=== PATIENT | male | born 1950 | race Caucasian/White ===

== ENCOUNTER 2022-12-17 21:47 | Emergency (ER) | payer MEDICARE, SELFPAY ==
--- NOTE | ~2022-12-17 | CT_ITS ---
CT Abdomen and Pelvis with contrast. History: Abdominal pain. Spiral CT of the abdomen and pelvis was performed after the administration of intravenous contrast. 1 00 cc of Omnipaque 350 was administered intravenously without complication. Dose reduction technique was used on this scan by utilizing automated exposure control and iterative reconstruction technique. The dose-length product (DLP) was 773.17 mGy-cm. Findings: Scans through the lung bases demonstrate mild atelectatic change. Small hiatal hernia noted . The liver, spleen, pancreas, gallbladder, adrenals and right kidney are within normal limits. Patient is status post left nephrectomy. No evidence of aortic aneurysm. No lymphadenopathy is seen. There is mild haziness in the left mesentery with suspected mild wall thickening of adjacent small sharlene wel loops. No bowel obstruction. No abscess or free air. Images through the pelvis were performed. Urinary bladder unremarkable. Prostate gland is minimally e nlarged. Trace pelvic ascites is seen. Impression: Focal infectious/inflammatory small bowel enteritis, as noted above. Trace free fluid. Small hiatal hernia. Prior left nephrectomy. Reviewed, dictated and finalized at [facility]. R BENDER Impression: Focal infectious/inflammatory small bowel enteritis, as noted above. Trace free fluid. Small hiatal hernia. Prior left nephrectomy.
[2022-12-17 21:50] VITALS: BP 151/72; PULSE 78; RESP 20; TEMP 36.6; O2SAT 98
[2022-12-17 22:03] LABS: Basophils Absolute Auto 0.1 K/mm3 (0.0-0.1); Basophils Percent Auto 0.7 % (0.2-1.2); Eosinophils Absolute Auto 0.2 K/mm3 (0-0.3); Eosinophils Percent Auto 1.8 % (0-4.4); Hematocrit 42.5 % (42.0-52.0); Hemoglobin 14.7 g/dL (14.0-18.0); Immature Granulocyte Absolute 0.04 K/mm3 (0.00-0.031); Immature Granulocyte Percent A 0.3 % (0-0.5); Lymphocytes Absolute Auto 2.43 K/mm3 (0.9-3.2); Lymphocytes Percent Auto 18.2 % (18.3-44.2); Mean Corpuscular HGB Conc 34.6 g/dl (32-36); Mean Corpuscular Volume 95.3 fl (80-100); Mean Platelet Volume 10.1 fl (7.4-10.4); Monocytes Absolute Auto 0.7 K/mm3 (0.1-0.6); Monocytes Percent Auto 4.9 % (2.6-8.5); Neutrophils Absolute Auto 9.9 K/mm3 (1.3-6.7); Neutrophils Percent Auto 74.1 % (45.5-73.1); Platelet Count Result 185 k/mm3 (150-375); Red Blood Count 4.46 M/mm3 (4.6-6.20); Red Cell Distribution Width 12.7 % (11.5-14.5); White Blood Count 13.4 K/mm3 (4.5-10.0)
[2022-12-17 22:14] LABS: Alanine Aminotransferase 21 U/L (6-50); Albumin Level 4.5 g/dL (3.5-5.1); Alkaline Phosphatase 79 U/L (38-126); Anion Gap 10 mmol/L (8-16); Aspartate Amino Transferase 32 U/L (17-59); Bilirubin,Total 0.6 mg/dL (0.2-1.3); Blood Urea Nitrogen 14 mg/dL (9-20); Calcium 9.6 mg/dL (8.4-10.2); Carbon Dioxide 25 mmol/L (22-30); Chloride 103 mmol/L (98-107); Estimated Glomerular Filt Rate 60; Glucose 133 mg/dL (65-110); Lipase 66 U/L (23-300); Sodium 138 mmol/L (137-145)
--- NOTE | 2022-12-18 00:42 | ED.GENADULT ---
HPI - General Adult General Chief complaint: Abdominal Pain Stated complaint: abdominal pain Time Seen by Provider: 12/17/22 23:21 History of Present Illness HPI narrative: Patient 72-year-old gentleman who presents to the emergency department with chief complaint of abdominal pain. Patient reports this evening started having pain in a band around the periumbilical region. The patient states the pain made him feel as though he had fullness in his abdomen that made him feel short of breath. Patient states he vomited a few times that did not improve his symptoms. The patient states upon arrival to the emergency department his symptoms have improved. Patient states that now essentially the discomfort has resolved. Related Data Allergies Allergy/AdvReac Type Severity Reaction Status Date / Time No Known Allergies Allergy Unknown Verified 12/17/22 21:54 Review of Systems Review of Systems: A 10 system review of systems was completed on the patient and is negative except for what is stated in the HPI. Nursing and ancillary documentation was reviewed. PMFSH Comments Patient reports prior history of nephrectomy Exam Narrative: GENERAL: Well-appearing, well-nourished, and in no acute distress. HEAD: Normocephalic, atraumatic. EYES: PERRLA and EOMI. ENT: Nares clear, no rhinorrhea or epistaxis. Mucous membranes moist. NECK: Supple. CHEST: Clear to auscultation. No respiratory distress. HEART: Regular rate and rhythm. No murmur heard. Normal peripheral pulses. ABDOMEN: Soft, tenderness to palpation of the left upper quadrant and left lower quadrant, nondistended, normal active bowel sounds. EXTREMITIES: Normal range of motion. No edema. SKIN: Warm, dry, no rash. NEURO: No focal deficits. Alert and oriented x3. PSYCH: Normal mood and affect. Course Vital Signs Vital signs: Vital Signs Temperature 36.6 C 12/17/22 21:50 Pulse Rate 78 12/17/22 21:50 Respiratory Rate 20 12/17/22 21:50 Blood Pressure 151/72 H 12/17/22 21:50 Pulse Oximetry 98 12/17/22 21:50 Oxygen Delivery Room Air 12/17/22 21:50 Temperature 36.6 C 12/17/22 21:50 Pulse Rate 78 12/17/22 21:50 Respiratory Rate 20 12/17/22 21:50 Blood Pressure 151/72 H 12/17/22 21:50 Pulse Oximetry 98 12/17/22 21:50 Oxygen Delivery Room Air 12/17/22 21:50 Medical Decision Making MDM Narrative Medical decision making narrative: Laboratory studies were obtained on the patient which showed a white blood cell count of 13.4 electrolytes showed no renal insufficiency normal liver enzymes normal lipase. Due to the patient being tender in the left upper quadrant and left lower quadrant a CT scan of the abdomen pelvis was ordered CT scan report was reviewed from the radiologist evidence of a mild hiatal hernia mildly inflamed small bowel loops concerning for enteritis/jejunitis. No evidence of bowel obstruction. Vital Signs Vital Signs: Vital Signs Temperature 36.6 C 12/17/22 21:50 Pulse Rate 78 12/17/22 21:50 Respiratory Rate 20 12/17/22 21:50 Blood Pressure 151/72 H 12/17/22 21:50 Pulse Oximetry 98 12/17/22 21:50 Oxygen Delivery Room Air 12/17/22 21:50 Temperature 36.6 C 12/17/22 21:50 Pulse Rate 78 12/17/22 21:50 Respiratory Rate 20 12/17/22 21:50 Blood Pressure 151/72 H 12/17/22 21:50 Pulse Oximetry 98 12/17/22 21:50 Oxygen Delivery Room Air 12/17/22 21:50 Lab Data 12/17/22 21:57 12/17/22 21:57 Labs: Lab Results 12/17/22 12/17/22 12/18/22 Range/Units 21:57 21:57 00:09 WBC 13.4 H (4.5-10.0) K/mm3 RBC 4.46 L (4.6-6.20) M/mm3 Hgb 14.7 (14.0-18.0) g/dL Hct 42.5 (42.0-52.0) % MCV 95.3 (80-100) fl MCH 33.0 (26-34) pg MCHC 34.6 (32-36) g/dl RDW 12.7 (11.5-14.5) % Plt Count 185 (150-375) k/mm3 MPV 10.1 (7.4-10.4) fl Immature Gran % (Auto) 0.3 (0-0.5) % Neut % (Auto) 74.1 H (45.5-73.1)
[2022-12-18 00:49] LABS: Appearance Urine Clear (Clear); Bacteria Urine Trace /hpf; Bilirubin Urine Negative (Negative); Blood Urine Trace-intact (Negative); Color Urine Yellow (Yellow); Glucose Urine UA Negative (Negative); Ketones Urine 2+ mg/dL (Negative); Leukocyte Esterase Ur Trace LEU/UL (Negative); Mucus Urine Rare /lpf; Nitrate Urine Negative (Negative); Protein Urine Negative (Negative); Specific Grav Ur 1.015 (1.001-1.035); Urobilinogen Urine 0.2 mg/dL (<2.0); pH Urine 6.5 (5.0-9.0)
[2022-12-18 00:51] LABS: Add Urine Microscopic? YES
[2022-12-18 01:56] VITALS: BP 125/81; PULSE 81; RESP 18; O2SAT 98
== END 2022-12-18 01:57 | disposition home or self-care (01) ==
PROVIDERS: Emergency Provider Emergency Medicine
DX: K52.9 Noninfective gastroenteritis and colitis, unspecified (principal); Z90.5 Acquired absence of kidney
CPT/HCPCS: 36415; 74177; 80053; 81001; 83690; 85025; 99284; Q9967

== ENCOUNTER 2024-02-06 20:09 | Inpatient (IN) | payer MEDICARE, SELFPAY ==
[2024-02-06] VITALS (14 sets, daily range): BP systolic 130–151; BP diastolic 82–114; PULSE 67–92; RESP 13–31; TEMP 36.4; O2SAT 90–100
--- NOTE | ~2024-02-06 | XR_ITS ---
Supine and upright views of the abdomen Clinical history: Follow-up exam Findings: NG tube in place. Bowel gas pattern is nonspecific. No evidence for obstruction or free air . No abnormal mass lesion or calcification is seen. Osseous structures are intact. Impression: Nonspecific bowel gas pattern with NG tube in place. Reviewed, dictated and finalized at [facility]. Impression: Nonspecific bowel gas pattern with NG tube in place.
--- NOTE | ~2024-02-06 | XR_ITS ---
XR abdomen gastric tube insert INDICATION: Evaluate NG tube position. TECHNIQUE: Limited KUB perform for evaluating NG tube . COMPARISON: No prior studies for comparison. FINDINGS: NG tube tip in the stomach. Visualized bowel gas pattern is nonspecific. IMPRESSION: 1: NG tube tip in the stomach. Reviewed, dictated and finalized at location A.
--- NOTE | ~2024-02-06 | XR_ITS ---
EXAMINATION: XR sm bowel follow through DATE: 02/07/2024 11:26 INDICATION: Small bowel obstruction. TECHNIQUE: Oral contrast was administered, and a time course of radiographs of the abdomen was obtain ed. Fluoroscopy of the small bowel was not performed. Fluoroscopy exposure time was 0 minutes. The to javier number of images was 4. COMPARISON: CT abdomen and pelvis 02/06/2024 FINDINGS: The nasogastric tube tip is in the stomach. There are mildly dilated loops of small bowel. Transit ti me from the stomach to proximal colon was approximately 30 minutes. IMPRESSION: 1. Mildly dilated small bowel with prompt transit of contrast to the colon, consistent with adynamic ileus versus partial small bowel obstruction. Reviewed, dictated and finalized at location A. IMPRESSION: 1. Mildly dilated small bowel with prompt transit of contrast to the colon, con sistent with adynamic ileus versus partial small bowel obstruction.
--- NOTE | ~2024-02-06 | CT_ITS ---
EXAMINATION: CT abdomen pelvis w con DATE: 02/06/2024 21:35 INDICATION: Right lower quadrant pain TECHNIQUE: Computed tomography (CT) of the abdomen and pelvis was performed with 100 cc Omnipaque 350 intravenous contrast. The dose-length product was 480.84 mGy-cm. Automated exposure control and iter ative reconstruction technique were employed. COMPARISON: CT dated 12/18/2022. FINDINGS: Lung bases are unremarkable. No significant pleural or pericardial effusion. There are dila wen small bowel loops with air-fluid levels with transition in the pelvis, consistent with obstructio n. The colon is relatively decompressed. No free air. No evidence for abscess. The liver, right adrenal gland and right kidney are unremarkable. Status post left nephrectomy. Gallb ladder is present. No significant vascular abnormality. Prostate gland is enlarged. No lymphadenopath y. There are multiple mild compression fractures of the lower thoracic and upper lumbar spine, chroni c. IMPRESSION: 1. Small bowel obstruction with transition in the pelvis, series 3 images 132-143.. The more proximal small bowel is also decompressed. Cannot exclude closed-loop obstruction. Reviewed, dictated and finalized at location A. IMPRESSION: 1. Small bowel obstruction with transition in the pelvis, series 3 images 132-1 43.. The more proximal small bowel is also decompressed. Cannot exclude closed- loop obstruction.
[2024-02-06 20:34] LABS: Basophils Percent Auto 0.3 % (0.2-1.2); Eosinophils Absolute Auto 0.2 K/mm3 (0-0.3); Eosinophils Percent Auto 2.5 % (0-4.4); Hematocrit 41.4 % (42.0-52.0); Hemoglobin 14.2 g/dL (14.0-18.0); Immature Granulocyte Absolute 0.03 K/mm3 (0.00-0.031); Immature Granulocyte Percent A 0.3 % (0-0.5); Lymphocytes Absolute Auto 2.38 K/mm3 (0.9-3.2); Lymphocytes Percent Auto 24.9 % (18.3-44.2); Mean Corpuscular HGB Conc 34.3 g/dl (32-36); Mean Corpuscular Hemoglobin 32.8 pg (26-34); Mean Corpuscular Volume 95.6 fl (80-100); Mean Platelet Volume 10.2 fl (7.4-10.4); Monocytes Absolute Auto 0.6 K/mm3 (0.1-0.6); Monocytes Percent Auto 5.7 % (2.6-8.5); Neutrophils Absolute Auto 6.3 K/mm3 (1.3-6.7); Neutrophils Percent Auto 66.3 % (45.5-73.1); Platelet Count Result 160 k/mm3 (150-375); Red Blood Count 4.33 M/mm3 (4.6-6.20); Red Cell Distribution Width 13.3 % (11.5-14.5); White Blood Count 9.6 K/mm3 (4.5-10.0)
[2024-02-06 20:36] LABS: Appearance Urine Clear (Clear); Bacteria Urine None Seen /hpf; Bilirubin Urine Negative (Negative); Blood Urine Negative (Negative); Color Urine Yellow (Yellow); Glucose Urine UA Negative (Negative); Ketones Urine Trace mg/dL (Negative); Leukocyte Esterase Ur Trace LEU/UL (Negative); Nitrate Urine Negative (Negative); Non Pathogenic Casts 0-2; Protein Urine Negative (Negative); RBC Urine 0-2 /hpf (0-2); Specific Grav Ur 1.022 (1.001-1.035); Squamous Epithelial Cell Urine None Seen /hpf (Few); WBC Urine 0-5 /hpf (0-3)
[2024-02-06 20:38] LABS: Add Urine Microscopic? YES
[2024-02-06 20:55] LABS: Alanine Aminotransferase 25 U/L (6-50); Albumin Level 4.4 g/dL (3.5-5.1); Alkaline Phosphatase 69 U/L (38-126); Anion Gap 9 mmol/L (8-16); Aspartate Amino Transferase 37 U/L (17-59); Bilirubin,Total 0.5 mg/dL (0.2-1.3); Blood Urea Nitrogen 25 mg/dL (9-20); Calcium 9.9 mg/dL (8.4-10.2); Carbon Dioxide 26 mmol/L (22-30); Chloride 103 mmol/L (98-107); Estimated CRCL calculation 45 ml/min; Estimated Glomerular Filt Rate 50; Glucose 117 mg/dL (65-110); Lipase 99 U/L (23-300); Potassium 3.9 mmol/L (3.4-5.0); Sodium 138 mmol/L (137-145)
[2024-02-06] MEDS: ONDANSETRON INJ 4 MG/2 ML VIAL IV PUSH (21:21)
[2024-02-06] MEDS: KETOROLAC 15 MG/ML VIAL (*BKC) IV PUSH (21:22)
[2024-02-06] MEDS: HYDROmorphone HCL INJ (*CRX) 2 MG/ML VIAL 0.5 MG IV PUSH (21:24)
[2024-02-06] MEDS: SODIUM CHLORIDE 0.9% IV 2,000 ML 999 ML IV CONT (21:24)
--- NOTE | 2024-02-06 21:39 | ED.GENADULT ---
HPI - General Adult General Chief complaint: Abdominal Pain Stated complaint: abd pain, N/V/D Time Seen by Provider: 02/06/24 20:22 History of Present Illness HPI narrative: This is a 73-year-old male presenting ED with chief complaint of abdominal pain. Patient says that starting earlier today in the RLQ. Radiates across abdomen. pain fluctuates with movement of his right leg. Associated with with nausea vomiting , fever chills and diaphoresis.. No diarrhea. Last bowel movement earlier today. Related Data Home Medications Medication Instructions Recorded Confirmed amlodipine 10 mg tablet mg 02/06/24 enalapril maleate 20 mg tablet mg 02/06/24 fluticasone propionate 50 intranasal 02/06/24 mcg/actuation nasal spray,suspension pravastatin 40 mg tablet mg 02/06/24 Allergies Allergy/AdvReac Type Severity Reaction Status Date / Time No Known Allergies Allergy Unknown Verified 02/06/24 20:14 Exam Narrative: APPEARANCE: No apparent distress. Head: atraumatic. EYES: EOMI, NOSE: Atraumatic NECK: Trachea midline RESPIRATORY: No increased rate of breathing CARDIOVASCULAR: RRR, ABDOMINAL: Tenderness palpation the right lower quadrant, rebound tenderness, pain with movement of the right leg MUSCULOSKELETAl: No obvious deformities NEURO: Alert. Moving 4/4 extremities SKIN:: Warm, dry. Normal color PSYCHIATRIC: Normal affect Course Vital Signs Vital signs: Vital Signs Temperature 97.5 F L 02/06/24 20:11 Pulse Rate 92 02/06/24 20:11 Respiratory Rate 22 H 02/06/24 20:11 Blood Pressure 136/114 H 02/06/24 20:11 Pulse Oximetry 100 02/06/24 20:11 Oxygen Delivery Room Air 02/06/24 20:11 Temperature 97.5 F L 02/06/24 20:11 Pulse Rate 67 02/06/24 21:04 Respiratory Rate 28 H 02/06/24 21:04 Blood Pressure 151/83 H 02/06/24 21:04 Pulse Oximetry 100 02/06/24 21:04 Oxygen Delivery Room Air 02/06/24 20:11 Medical Decision Making [facility] Narrative Medical decision making narrative: -Course: 73-year-old male presenting with abdominal pain. CT showed small bowel obstruction. Closed loop obstruction cannot be ruled out. After the patient received pain medication he is far more comfortable. His abdominal exam is now soft nontender with no guarding/rebound.White count normal. Lactic normal. Originally started ceftriaxone/Flagyl but after I discussed case Dr. Chong he requested pip/tazo. Antibiotics switched. NG tube was placed. maintenance fluids, ppi and p.r.n. pain meds added. patient admitted under hospitalist service. 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 Metabolic unremarkable. Urine not indicative infection -Discussion of Management/Consultants: -Interventions: 2 L normal saline point mg Dilaudid 15 mg Toradol, 4 mg Zofran, 125 cc/hrLR, piptazo. Protonix PPI -Shared decision making / Disposition: admitted. Vital Signs Vital Signs: Vital Signs Temperature 97.5 F L 02/06/24 20:11 Pulse Rate 92 02/06/24 20:11 Respiratory Rate 22 H 02/06/24 20:11 Blood Pressure 136/114 H 02/06/24 20:11 Pulse Oximetry 100 02/06/24 20:11 Oxygen Delivery Room Air 02/06/24 20:11 Temperature 97.5 F L 02/06/24 20:11 Pulse Rate 67 02/06/24 21:04 Respiratory Rate 28 H 02/06/24 21:04 Blood Pressure 151/83 H 02/06/24 21:04 Pulse Oximetry 100 02/06/24 21:04 Oxygen Delivery Room Air 02/06/24 20:11 Lab Data 02/06/24 20:25 02/06/24 20:25 Labs: Lab Results 02/06/24 02/06/24 Range/Units 20:25 21:25
[2024-02-06 21:49] LABS: Lactic Acid Reflex 1.1 mmol/L (0.7-2.0)
[2024-02-06] MEDS: PANTOPRAZOLE SODIUM IV 40 MG VIAL IV PUSH (22:44)
[2024-02-06] MEDS: PIPERACILLN/TAZ 3.375GM/NS50ML 3.375 GM/50 ML BAG IVPB (22:44)
--- NOTE | 2024-02-06 23:26 | PM.IMHP ---
H&P: HPI History of Present Illness Date/Time: 02/06/24 23:26 Chief Complaint: Abdominal pain. This is a 73-year-old male patient with a past medical history of chronic hypertension hyperlipidemia who came to the emergency room complaining of abdominal pain. Patient said that he started having pain yesterday in the right lower quadrant that radiated across the abdomen. Patient also complains of associated nausea and vomiting fever chills and diaphoresis. Last bowel movement was earlier yesterday. Patient is awake alert not in any acute distress. Denies any dizziness lightheadedness no blurred vision no chest pains no shortness of breath no dysuria no muscle and joint pains. Vital signs in the emergency room were stable. Cbc was may need rate. CMP was significant for BUN 25 creatinine 1.40. Glucose 117. Liver enzymes normal. Urinalysis may need range. CT scan of the abdomen showed small-bowel obstruction with transition in the pelvis. The more proximal small bowel is also decompressed. Cannot exclude closed loop obstruction. Patient was given IV fluids IV antibiotics IV pain control IV Zofran in the emergency room. Surgical consultation was called from the emergency room. Review of Systems Review of Systems: A 12 point review of system is done and is only positive what dictated in the history of present illness. Meds Home Medications and Allergies Home Medications Medication Instructions Recorded Confirmed Type amlodipine 10 mg tablet mg 02/06/24 History enalapril maleate 20 mg tablet mg 02/06/24 History fluticasone propionate 50 intranasal 02/06/24 History mcg/actuation nasal spray,suspension pravastatin 40 mg tablet mg 02/06/24 History Allergies Allergy/AdvReac Type Severity Reaction Status Date / Time No Known Allergies Allergy Unknown Verified 02/06/24 20:14 Vital Signs Vital Signs - 24 hr 02/06/24 20:11 02/06/24 20:31 02/06/24 20:55 Temperature 97.5 F L Pulse Rate 92 80 72 Respiratory Rate 22 H 18 31 H Blood Pressure 136/114 H Pulse Oximetry 100 99 100 Oxygen Delivery Room Air 02/06/24 21:04 02/06/24 21:16 02/06/24 21:19 Temperature Pulse Rate 67 72 74 Respiratory Rate 28 H 20 29 H Blood Pressure 151/83 H 149/83 H Pulse Oximetry 100 99 100 Oxygen Delivery 02/06/24 21:39 02/06/24 21:45 02/06/24 22:00 Temperature Pulse Rate 75 79 Respiratory Rate 18 Blood Pressure Pulse Oximetry 98 92 90 Oxygen Delivery 02/06/24 22:22 02/06/24 22:47 02/06/24 23:01 Temperature Pulse Rate 83 82 81 Respiratory Rate 16 17 15 Blood Pressure Pulse Oximetry 96 95 98 Oxygen Delivery 02/06/24 23:16 Temperature Pulse Rate 82 Respiratory Rate 13 Blood Pressure Pulse Oximetry 96 Oxygen Delivery Exam Const: Other: Awake alert not in acute distress. HENMT: Other: Normocephalic atraumatic. Neck: Other: Supple no thyromegaly. Resp: Other: Clear to auscultation bilaterally. Cardio: Other: S1-S2 regular no murmur heard. GI: Other: Soft nontender good bowel sounds. Extrem: Other: No pedal edema. H&P: Results Labs Labs: Short CBC 02/06/24 Range/Units 20:25 WBC 9.6 (4.5-10.0) K/mm3 Hgb 14.2 (14.0-18.0) g/dL Hct 41.4 L (42.0-52.0) % Plt Count 160 (150-375) k/mm3 BMP 02/06/24 20:25 Sodium 138 Potassium 3.9 Chloride 103 Carbon Dioxide 26 BUN 25 H D Creatinine 1.40 H Glucose 117 H Calcium 9.9 Liver Function 02/06/24 Range/Units 20:25 Total Bilirubin 0.5 (0.2-1.3) mg/dL AST 37 (17-59) U/L ALT 25 (6-50) U/L Alkaline Phosphatase 69 (38-126) U/L Albumin 4.4 (3.5-5.1) g/dL Urine 02/06/24 Range/Units 20:25 Urine Color Yellow (Yellow) Urine Appearance Clear (Clear) Urine pH 6.0 (5.0-9.0) Ur Specific [place] 1.022 (1.001-1.035) Urine Protein Negative (Negative) mg/dL Urine Glucose
--- NOTE | 2024-02-06 23:37 | ADMGEN ---
This patient, Bello Mccallum, was admitted to Medical Room 248-. Patient/family oriented to hospital policies and general routines including ID bracelet, bed and alarms, visiting hours, pain management, procedures, bathroom and other care routines, personal items, smoking policy, room service/diet, and visiting hours. Information on how to activate the Rapid Response Team has been discussed. Patient/Family are encouraged to report perceived risks to care and to ask questions if they do not understand what they are told or what they should do.
[2024-02-07] VITALS (10 sets, daily range): BP systolic 128–144; BP diastolic 72–79; PULSE 60–80; RESP 18–20; TEMP 35.9–36.7; O2SAT 96–99
[2024-02-07] MEDS: LACTATED RINGERS 1,000 ML 125 ML IV CONT ×3 (00:38→19:20)
[2024-02-07 05:52] LABS: Basophils Percent Auto 0.5 % (0.2-1.2); Eosinophils Absolute Auto 0.1 K/mm3 (0-0.3); Eosinophils Percent Auto 1.9 % (0-4.4); Hematocrit 36.7 % (42.0-52.0); Hemoglobin 12.1 g/dL (14.0-18.0); Immature Granulocyte Absolute 0.01 K/mm3 (0.00-0.031); Immature Granulocyte Percent A 0.2 % (0-0.5); Immature Platelet Fraction Pct 2.9 % (0.9-11.2); Lymphocytes Absolute Auto 1.71 K/mm3 (0.9-3.2); Lymphocytes Percent Auto 26.7 % (18.3-44.2); Mean Corpuscular Hemoglobin 32.5 pg (26-34); Mean Corpuscular Volume 98.7 fl (80-100); Mean Platelet Volume 10.7 fl (7.4-10.4); Monocytes Absolute Auto 0.4 K/mm3 (0.1-0.6); Monocytes Percent Auto 6.9 % (2.6-8.5); Neutrophils Absolute Auto 4.1 K/mm3 (1.3-6.7); Neutrophils Percent Auto 63.8 % (45.5-73.1); Platelet Count Result 141 k/mm3 (150-375); Red Blood Count 3.72 M/mm3 (4.6-6.20); Red Cell Distribution Width 13.3 % (11.5-14.5); White Blood Count 6.4 K/mm3 (4.5-10.0)
[2024-02-07 05:59] LABS: Lactic Acid Reflex 0.6 mmol/L (0.7-2.0)
[2024-02-07 06:02] LABS: Alanine Aminotransferase 18 U/L (6-50); Albumin Level 3.2 g/dL (3.5-5.1); Alkaline Phosphatase 51 U/L (38-126); Anion Gap 2 mmol/L (8-16); Aspartate Amino Transferase 27 U/L (17-59); Bilirubin,Total 0.5 mg/dL (0.2-1.3); Blood Urea Nitrogen 20 mg/dL (9-20); Calcium 8.2 mg/dL (8.4-10.2); Carbon Dioxide 28 mmol/L (22-30); Chloride 108 mmol/L (98-107); Estimated CRCL calculation 52 ml/min; Estimated Glomerular Filt Rate 59; Glucose 101 mg/dL (65-110); Potassium 3.5 mmol/L (3.4-5.0); Sodium 138 mmol/L (137-145)
[2024-02-07] MEDS: PIPERACILLN/TAZ 3.375GM/NS50ML 3.375 GM/50 ML BAG IVPB ×2 (06:07→12:45)
[2024-02-07] MEDS: FLUTICASONE PROPIONATE 0.05% NA SPR 16 GM BTL (*BKC) 2 SPRAY NASAL (09:27)
[2024-02-07] MEDS: PANTOPRAZOLE SODIUM IV 40 MG VIAL IV PUSH (09:27)
--- NOTE | 2024-02-07 09:53 | PM.CNGS ---
Assessment and Plan Assessment and plan (1) SBO (small bowel obstruction): Code(s): K56.609 - Unspecified intestinal obstruction, unspecified as to partial versus complete obstruction Status: Acute Assessment and Plan: CT shows evidence of a small bowel obstruction with transition point in the pelvis. Follow-up abdominal x-rays this morning showed NG in place with nonspecific bowel gas pattern. He has already clinically improved. He is no longer having any abdominal pain and his abdominal exam is completely benign. No indication for any urgent surgical intervention. Will order a water-soluble small bowel follow-through to further evaluate the small-bowel obstruction. If contrast moves through to the colon, then we will remove the NG tube and start clear liquids. Continue NG tube decompression, bowel rest, and IV fluids for now. Plan I have discussed the patient's case and plan of care with Dr. Chong. History of Present Illness Consult details Consult date: 02/07/24 Reason for consult: other (Small bowel obstruction) Requesting physician: Garrett Reece MD Narrative: This is a 73-year-old man who we have been asked to see in surgical consultation for a small-bowel obstruction. He presented to the ER yesterday evening with complaints of abdominal pain starting the same day. He reports a gradual onset of generalized cramping abdominal pain around 3:00 p.m. yesterday. The pain continued to worsen over the next few hours. He developed nausea and vomiting at home. Due to the severe pain, he presented to the ER. Labs showed a normal white blood cell count and normal lactic acid. CT scan of the abdomen and pelvis showed a small-bowel obstruction with transition in the pelvis, cannot exclude closed-loop obstruction. NG tube was placed. He was admitted to the hospitalist service. He is now seen on the medical floor. His abdominal pain has resolved. He reports flatus this morning. His last bowel movement was yesterday morning prior to the onset of symptoms. He denies eating any large quantity of foods yesterday. He denies a history of a small-bowel obstruction. He does have a history of prostate and kidney cancer. He incidentally found out about a tumor on his kidney when he was undergoing workup for the prostate cancer. He opted to first have a robotic-assisted left nephrectomy in 2020, and then he had cryotherapy for the prostate cancer about 9-10 months later. Denies any history of radiation therapy or surgical intervention for the prostate cancer. He continues to follow a Urologist at [facility]. Review of Systems Review of Systems: All systems reviewed & are unremarkable except as noted in HPI and below PMFSH Past Medical History Medical History History of kidney cancer History of prostate cancer Status post cryotherapy Hyperlipidemia Hypertension Surgical History Surgical History History of left nephrectomy 2020 Family History Family History Mother Breast cancer Father Cancer Social History Social History Smoking status: Never smoker Alcohol intake: current Drinks per week: 14 Substance use: never Substance use type: does not use Do You Feel Safe in your Home?: Yes Lack of Transportation: No Lack of Food: Never True Current Housing: I Have Housing Concerned About Future Housing: No Difficulty Paying Gas/Electric Bills: No Difficulty Paying for Meds: No Currently Unemployed: No Education: Bachelor's Degree Difficulty w/ Childcare or Family Care: No Spiritual care concerns: No Meds Home Medications and Allergies Home Medications Medication Instructions Recorded Confirmed Type amlodipine 10 mg tablet 10 mg PO DAILY 02/06/24 02/06/24 Histor
--- NOTE | 2024-02-07 13:50 | PC.NURSE ---
On 02/07/24, the student, [Nafisa Lam], provided care and completed [facility] documentation on this patient. I have reviewed the student's documentation and agree with the findings.
--- NOTE | 2024-02-07 15:15 | PM.IMPN ---
Progress Note: A&P Assessment and Plan (1) SBO (small bowel obstruction): Code(s): K56.609 - Unspecified intestinal obstruction, unspecified as to partial versus complete obstruction Status: Acute Assessment and Plan: Patient presented to the ED due to acute abdominal pain. CT abdomen pelvis showing small bowel obstruction with transition in the pelvis. General surgery consulted and appreciate the recommendations. Small-bowel follow-through on 02/07/2024 showing adynamic ileus versus partial. Bowel obstruction NG tube originally placed in the ED but then discontinued after small-bowel follow-through. IV fluids discontinued and clear liquids initiated. Abx discontinued. (2) Hypertension: Code(s): I10 - Essential (primary) hypertension Status: Acute Assessment and Plan: Chronic hypertension. Resume home medications. Subjective Date/time seen: 02/07/24 15:15 Interval history: patient doing well and tolerating his clear liquid diet. He had bowel movement this afternoon. Denies any abdominal pain at this time. Will continue to advance diet as tolerated. Exam Narrative: GENERAL: Comfortable, no acute distress HENMT: moist mucous membranes EYES: EOM intact b/l NECK: no lymphadenopathy RESPIRATORY: clear to auscultation CARDIO: RRR GI: soft, nontender, bowel sounds present SKIN: no rashes EXTREMITIES: no edema, redness or tenderness Objective Data Vital Signs Vital Signs: Vital Signs - 24 hr 02/06/24 20:11 02/06/24 20:31 02/06/24 20:55 Temperature 97.5 F L Pulse Rate 92 80 72 Respiratory Rate 22 H 18 31 H Blood Pressure 136/114 H Pulse Oximetry 100 99 100 Oxygen Delivery Room Air 02/06/24 21:04 02/06/24 21:16 02/06/24 21:19 Temperature Pulse Rate 67 72 74 Respiratory Rate 28 H 20 29 H Blood Pressure 151/83 H 149/83 H Pulse Oximetry 100 99 100 Oxygen Delivery 02/06/24 21:39 02/06/24 21:45 02/06/24 22:00 Temperature Pulse Rate 75 79 Respiratory Rate 18 Blood Pressure Pulse Oximetry 98 92 90 Oxygen Delivery 02/06/24 23:25 02/06/24 22:22 02/06/24 22:47 Temperature Pulse Rate 81 83 82 Respiratory Rate 13 16 17 Blood Pressure 130/82 Pulse Oximetry 95 96 95 Oxygen Delivery 02/06/24 23:01 02/06/24 23:16 02/07/24 00:00 Temperature 98.1 F Pulse Rate 81 82 80 Respiratory Rate 15 13 18 Blood Pressure 144/75 H Pulse Oximetry 98 96 99 Oxygen Delivery 02/07/24 00:00 02/07/24 01:13 02/07/24 04:00 Temperature Pulse Rate 79 78 74 Respiratory Rate 19 Blood Pressure Pulse Oximetry 98 Oxygen Delivery Room Air 02/07/24 04:00 02/07/24 05:36 02/07/24 14:00 Temperature 97.7 F 97.7 F 97.6 F Pulse Rate 71 71 68 Respiratory Rate 19 19 18 Blood Pressure 130/76 130/76 128/72 Pulse Oximetry 96 96 96 Oxygen Delivery Intake/Output Intake/Output: Intake & Output 02/04/24 02/05/24 02/06/24 02/07/24 23:59 23:59 23:59 23:59 Intake Total 2100 1054.2 Output Total 100 Balance 2000 1054.2 Meds/Results Medications: Active Medications Generic Name Dose Route Start Last Admin Trade Name Freq PRN Reason Stop Dose Admin Amlodipine Besylate 10 mg 02/07/24 09:00 Amlodipine Besylate 5 Mg Tablet PO DAILY [facility] Enalapril Maleate 20 mg 02/07/24 09:00 Enalapril Maleate 10 Mg Tablet PO DAILY [facility] Fluticasone Propionate 2 spray 02/07/24 09:00 02/07/24 09:27 Fluticasone Propionate 0.05% Na Spr 16 Gm Btl (*Bkc) NASAL 2 spray DAILY ARUNA Administration Hydromorphone HCl 0.5 mg 02/06/24 22:10 Hydromorphone Hcl Inj (*Crx) 1 Mg/Ml Syr IV PUSH Q4H PRN Pain Rated 7-10 Lactated Ringer's 1,000 mls @ 125 mls/hr 02/06/24 22:10 02/07/24 08:16 Lr - Lactated Ringers Iv IV CONT 125 mls/hr .Q8H ARUNA Administration Piperacillin/Tazobactam/Dextrose 3.375 gm in 50 mls @ 100 mls/hr 02/07/24 06:00 02/07/24
[2024-02-07] MEDS: ENALAPRIL MALEATE 10 MG TABLET 20 MG PO (17:17)
[2024-02-07] MEDS: amLODIPine BESYLATE 5 MG TABLET 10 MG PO (17:17)
[2024-02-08] VITALS: PULSE 57
[2024-02-08] MEDS: LACTATED RINGERS 1,000 ML 125 ML IV CONT (03:20)
[2024-02-08 04:00] VITALS: PULSE 57
[2024-02-08 05:09] VITALS: BP 134/75; PULSE 61; RESP 17; TEMP 36.8; O2SAT 98
[2024-02-08 06:14] LABS: Hemoglobin 11.8 g/dL (14.0-18.0); Immature Platelet Fraction Pct 2.8 % (0.9-11.2); Mean Corpuscular HGB Conc 32.8 g/dl (32-36); Mean Corpuscular Hemoglobin 33.1 pg (26-34); Mean Corpuscular Volume 100.8 fl (80-100); Mean Platelet Volume 10.4 fl (7.4-10.4); Platelet Count Result 127 k/mm3 (150-375); Red Blood Count 3.57 M/mm3 (4.6-6.20); Red Cell Distribution Width 13.6 % (11.5-14.5); White Blood Count 4.4 K/mm3 (4.5-10.0)
[2024-02-08 06:48] LABS: Anion Gap 1 mmol/L (8-16); Blood Urea Nitrogen 11 mg/dL (9-20); Calcium 8.6 mg/dL (8.4-10.2); Carbon Dioxide 29 mmol/L (22-30); Chloride 109 mmol/L (98-107); Estimated CRCL calculation 57 ml/min; Estimated Glomerular Filt Rate > 60; Glucose 95 mg/dL (65-110); Potassium 3.8 mmol/L (3.4-5.0); Sodium 139 mmol/L (137-145)
[2024-02-08 08:00] VITALS: PULSE 58
[2024-02-08] MEDS: PANTOPRAZOLE SODIUM IV 40 MG VIAL IV PUSH (08:11)
[2024-02-08] MEDS: FLUTICASONE PROPIONATE 0.05% NA SPR 16 GM BTL (*BKC) 2 SPRAY NASAL (08:11)
--- NOTE | 2024-02-08 09:30 | WPDPN ---
Progress Note: A&P Assessment and Plan (1) SBO (small bowel obstruction): Code(s): K56.609 - Unspecified intestinal obstruction, unspecified as to partial versus complete obstruction Status: Acute Assessment and Plan: Resolved. Could have been due to adhesions from previous surgeries. Could have also been due to ileus and constipation. At this point will go ahead advanced his diet to regular food. The tolerating be discharged home today. Need for follow-up with general surgeon after discharge. Subjective Date/time seen: 02/08/24 09:30 Interval history: Patient doing very well today. No abdominal pain. He continues to have bowel movements. Water-soluble small bowel series yesterday showed normal transit time of contrast to the colon without evidence of small-bowel obstruction. White blood cell count normal electrolytes normal. Tolerated full liquids. Exam GI: GI Palp: Yes Soft to palpation, No Firmness to palpation present (GI), No Tenderness to palpation present (GI), No Guarding due to palpation present (GI) and No Hernia present Objective Data Vital Signs Vital Signs: Vital Signs - 24 hr 02/07/24 14:00 02/07/24 09:35 02/07/24 12:00 Temperature 36.4 C Pulse Rate 68 80 Respiratory Rate 18 Blood Pressure 128/72 Pulse Oximetry 96 Oxygen Delivery Room Air 02/07/24 16:00 02/07/24 20:47 02/07/24 20:00 Temperature 35.9 C L Pulse Rate 64 60 60 Respiratory Rate 20 Blood Pressure 130/79 Pulse Oximetry 98 Oxygen Delivery 02/08/24 00:00 02/08/24 04:00 02/08/24 05:09 Temperature 36.8 C Pulse Rate 57 L 57 L 61 Respiratory Rate 17 Blood Pressure 134/75 Pulse Oximetry 98 Oxygen Delivery Intake/Output Intake/Output: Intake & Output 02/05/24 02/06/24 02/07/24 02/08/24 23:59 23:59 23:59 23:59 Intake Total 2100 3704.2 1350 Output Total 100 400 Balance 1999 3304.2 1350 Meds/Results Medications: Active Medications Generic Name Dose Route Start Last Admin Trade Name Freq PRN Reason Stop Dose Admin Amlodipine Besylate 10 mg 02/08/24 18:00 Amlodipine Besylate 5 Mg Tablet PO QPM [facility] Enalapril Maleate 20 mg 02/08/24 18:00 Enalapril Maleate 10 Mg Tablet PO QPM [facility] Fluticasone Propionate 2 spray 02/07/24 09:00 02/08/24 08:11 Fluticasone Propionate 0.05% Na Spr 16 Gm Btl (*Bkc) NASAL 2 spray DAILY [facility]UNA Administration Hydromorphone HCl 0.5 mg 02/06/24 22:10 Hydromorphone Hcl Inj (*Crx) 1 Mg/Ml Syr IV PUSH Q4H PRN Pain Rated 7-10 Lactated Ringer's 1,000 mls @ 125 mls/hr 02/06/24 22:10 02/08/24 03:20 Lr - Lactated Ringers Iv IV CONT 125 mls/hr .Q8H ARUNA Administration Ketorolac Tromethamine 30 mg 02/06/24 22:10 Ketorolac 30 Mg/Ml Vial (*Bkc) IV PUSH 02/11/24 22:09 Q6H PRN Pain Rated 4-6 Ondansetron HCl 4 mg 02/06/24 22:10 Ondansetron Inj 4 Mg/2 Ml Vial IV PUSH Q4H PRN Nausea Pantoprazole Sodium 40 mg 02/07/24 09:00 02/08/24 08:11 Pantoprazole Sodium Iv 40 Mg Vial IV PUSH 40 mg QAM ARUNA Administration Radiology Results: ITS Impressions Abdomen/Pelvis CT 02/06/24 21:38 IMPRESSION: 1. Small bowel obstruction with transition in the pelvis, series 3 images 132-143.. The more proximal small bowel is also decompressed. Cannot exclude closed-loop obstruction. Abdomen X-Ray 02/07/24 06:10 Impression: Nonspecific bowel gas pattern with NG tube in place. Small Bowel X-Ray 02/07/24 11:32 IMPRESSION: 1. Mildly dilated small bowel with prompt transit of contrast to the colon, consistent with adynamic ileus versus partial small bowel obstruction. Labs Labs: Laboratory Results - last 24 hr 02/08/24 05:54 WBC 4.4 L RBC 3.57 L Hgb 11.8 L Hct 36.0 L MCV 100.8 H MCH 33.1 MCHC 32.8 RDW 13.6 Plt Count 127 L MPV 10.4 % Immature Plt Fraction 2.8 Sodium 139 Potassium 3.8 Chloride 109 H Car
--- NOTE | 2024-02-08 11:00 | PM.DS ---
DS: Admitting Diagnosis Discharge Date 02/08/24 Admitting Diagnosis SBO DS: Discharge Diagnosis Discharge Diagnosis (1) SBO (small bowel obstruction): Code(s): K56.609 - Unspecified intestinal obstruction, unspecified as to partial versus complete obstruction Status: Acute (2) Hypertension: Code(s): I10 - Essential (primary) hypertension Status: Acute DS: Summary Hospital Course Hospital Course: This is a 73-year-old male with a past medical history of chronic hypertension and hyperlipidemia the presents to the ED due to abdominal pain. CT abdomen pelvis showing small bowel obstruction with transition in the pelvis. Patient had bowel decompressed with an NG tube. Patient was started on IV fluids and IV antibiotics. General surgery was consulted. The following day patient was able to have small-bowel follow-through should not reveal a complete obstruction. Patient did have bowel movement later in the afternoon. His diet was advanced. Patient no longer experiencing abdominal pain or cramping. Patient was eventually advanced to regular diet and he did well with this. Per General surgery patient cleared for discharge. His labs and vital signs are stable and he is medically cleared for discharge at this time. Time Spent with Patient Time attestation: Total time spent providing and/or coordinating discharge services: Exam Narrative: GENERAL: Comfortable, no acute distress HENMT: moist mucous membranes EYES: EOM intact b/l NECK: no lymphadenopathy RESPIRATORY: clear to auscultation CARDIO: RRR GI: soft, nontender, bowel sounds present SKIN: no rashes EXTREMITIES: no edema, redness or tenderness DS: Data Data Completed and Pending Labs on day of discharge: Labs from last 24 hours 02/08/24 05:54 WBC 4.4 L RBC 3.57 L Hgb 11.8 L Hct 36.0 L MCV 100.8 H MCH 33.1 MCHC 32.8 RDW 13.6 Plt Count 127 L MPV 10.4 % Immature Plt Fraction 2.8 Sodium 139 Potassium 3.8 Chloride 109 H Carbon Dioxide 29 Anion Gap 1 L BUN 11 D Creatinine 1.10 Estim Creat Clear Calc 57 Estimated GFR > 60 Glucose 95 Calcium 8.6 Discharge Plan Discharge Attending physician on discharge: Jakob Brock Consulting providers: Fabio Chong Discharging Clinician: Neeta Carpenter Patient Disposition: Home, Self-Care Activity: as tolerated Diet: as tolerated and regular Discharge Instructions: May discharge home if tolerating regular diet and having no abdominal pain or nausea. Discharge disposition as per hospitalist. No need to follow up with General surgery after discharge. Recommendation for constipation: Recommend patient continue MiraLax 17 g up to 3 times a day. Dulcolax suppository 10 mg as needed Colace tablet as needed Once constipation has resolved, slowly decrease the amount of MiraLax you were taking per day. It is not advised that MiraLax be discontinued all at 1 time because there is a risk risk of the constipation returning. For example if you were taking MiraLax once a day, take a break for MiraLax 1 day out of the week. Then the next week take 2 days off of MiraLax and so on. Prevention Increase fiber. Recommended daily fiber is 20-35 g of fiber a day. Bulk forming laxative such as Metamucil Exercise Discontinuation of opioids and other medications causing constipation if possible Discharge disposition: Take medications as prescribed Monitor blood pressures Avoid social areas, you wear a mask when in social settings Encouraged to continue with yearly vaccinations Return to the emergency department if he developed sudden shortness of breath, chest pain, nausea, vomiting, upset stomach or intractable diarrhea Return to the emergency department if you develop fever greater than 100.4 Follow-up with the primary care physician within 1-2 weeks Thank you for choosing [facility] for your healthcare needs Patient Instr
== END 2024-02-08 11:40 | disposition home or self-care (01) | DRG 390 ==
LOC: ANHED 22:24 → ANH2MED 23:13
PROVIDERS: Admitting Provider Internal Medicine Infectious Disease; Emergency Provider Emergency Medicine; Visit Provider Internal Medicine Critical Care Medicine
DX: K56.609 Unspecified intestinal obstruction, unspecified as to partial versus complete obstruction (principal); I10 Essential (primary) hypertension; E78.5 Hyperlipidemia, unspecified; Z85.46 Personal history of malignant neoplasm of prostate; Z85.528 Personal history of other malignant neoplasm of kidney
CPT/HCPCS: 36415; 74019; 74177; 74250; 80048; 80053; 83605; 83690; 85025; 85027; 85055; 96374; 96375; 99285; A9270; C9113; J0696; J1170; J1885; J2405; J2543; J7030; J7120; Q9967